=== PATIENT | female | born 1990 | race African-American/Black ===

== ENCOUNTER 2019-10-22 15:08 | Emergency (ER) | payer OTHER ==
[2019-10-22 15:24] VITALS: BP 105/72; PULSE 79; TEMP 98.3; BMI 29.2
[2019-10-22] MEDS ORDERED: KETOROLAC TROMETHAMINE 60 MG/2 ML VIAL IM ONE (16:03)
[2019-10-22] MEDS ORDERED: KETOROLAC TROMETHAMINE 60 MG/2 ML VIAL ONE (16:06)
--- NOTE | 2019-10-22 16:43 | PDOC ---
History of Present Illness - General Chief Complaint: Injury Stated Complaint: LF WRIST INJURY Time Seen by Provider: 10/22/19 15:37 History Source: Patient Exam Limitations: Clinical Condition - History of Present Illness Initial Comments: 10/22/19 16:49 Patient with no significant past medical history presented with complaint of worsening pain to back of left hand on the ulnar aspect status post slip yesterday and grabbing herself with her left hand while getting off a box yesterday. Patient reports pain started as mild pain yesterday which is worsened today which is worse with movement of left hand and wrist. Patient did not take anything for pain. Denies numbness or tingling sensation or restricted hand or wrist movement. Denies any other symptoms Occurred: reports: yesterday Severity: reports: moderate Pain Location: reports: upper extremity (left hand) Method of Injury: Yes: fall Modifying Factors: improves with: rest Associated Symptoms (Fall): denies symptoms Past History - Past Medical History Allergies/Adverse Reactions: Allergies Allergy/AdvReac Type Severity Reaction Status Date / Time shrimp Allergy Verified 10/22/19 15:21 tomato Allergy Verified 10/22/19 15:20 Home Medications: Ambulatory Orders Ibuprofen 800 mg PO Q8H PRN #20 tablet 10/22/19 COPD: No - Psycho Social/Smoking Cessation Hx Smoking History: Current every day smoker Information on smoking cessation initiated: No Review of Systems - Review of Systems Able to Perform ROS?: Yes Is the patient limited Croatian proficient: No Constitutional: No: Malaise, Weakness Respiratory: No: Symptoms reported Cardiac (ROS): No: Symptoms Reported ABD/GI: No: Symptoms Reported Musculoskeletal: Yes: Symptoms Reported, See HPI, Joint Pain (left wrist pain), Joint Swelling (left hand), Muscle Pain (left hand pain) Integumentary: Yes: Symptoms Reported, See HPI, Other (swelling to left back of hand) Neurological: No: Symptoms reported, Numbness, Paresthesia, Weakness All Other Systems: Reviewed and Negative *Physical Exam - Vital Signs Last Vital Signs Temp Pulse Resp BP Pulse Ox 98.3 F 79 18 105/72 100 10/22/19 15:18 10/22/19 15:18 10/22/19 15:18 10/22/19 15:18 10/22/19 15:18 - Physical Exam Comments: 10/22/19 16:47 GENERAL: Well developed, well nourished. Awake and alert in moderate acute distress. PULMONARY: No evidence of respiratory distress. MUSCULOSKELETAL : Moderate tenderness along dorsal aspect of ulna part of left hand with increased tenderness over the fifth metacarpals. Mild swelling over the ulnar aspect of dorsal aspect of left hand. No bony deformities SKIN: Warm and dry. Normal capillary refill. No bruising or ecchymosis. NEUROLOGICAL: Alert, awake, appropriate. No motor deficits in the lower extremities. Gait is normal without ataxia. PSYCHIATRIC: Cooperative. Good eye contact. Appropriate mood and affect. General Appearance: Yes: Nourished, Appropriately Dressed, Apparent Distress, Mild Distress Procedures - Splinting Splint Location: Left: Hand, Wrist Pre-Proc Neuro Vasc Exam: normal Pre-Made Type: metal Hand-Made Type: fiberglass Splint Type: Yes: Wrist Post-Proc Neuro Vasc Exam: normal Riley Bandage: yes, 3" Sling: Yes Complications: No Post splint xray: No Good repositioning: Yes ED Treatment Course - RADIOLOGY Radiology Studies Ordered: Category Date Time Status WRIST W/HAND-LEFT* [RAD] Stat Radiology 10/22/19 15:37 Taken Medical Decision Making - Medical Decision Making 10/22/19 16:50 Patient with no significant past medical history presented with complaint of 24- hour history of injury of left hand with moderate pain to ulnar aspect of back of left hand which is worse with movement. Exam significant for moderate tenderness over the ulnar aspect of left hand overlying fourth and fifth metacarpals with no visible deformity. Mild swelling over the dorsal aspect of left hand over on the side. X-ray of left hand and wrist shows no acute fracture or dislocation. Patient symptoms likely wrist and hand sprain. Left hand wrapped with Riley bandage and patient placed with prefabricated wrist and hand splint given patient with complains of severe hand pain. Patient given sling for support. Toradol 60 mg IM given for pain. Patient stable for discharge with orthopedics follow-up Discharge - Discharge Information Problems reviewed: Yes Clinical Impression/Diagnosis: Left wrist pain Sprain of left hand Qualifiers: Encounter type: initial encounter Qualified Code(s): S63.92XA - Sprain of unspecified part of left wrist and hand, initial encounter Condition: Stable Disposition: HOME - Admission No - Additional Discharge Information Prescriptions: Ibuprofen 800 mg PO Q8H PRN #20 tablet PRN Reason: pain - Follow up/Referral Referrals: Zaki Duarte MD [Staff Physician] - - Patient Discharge Instructions Patient Printed Discharge Instructions: DI for Wrist Sprain Additional Instructions: X-ray of left wrist and hand shows no acute fracture or dislocation. Keep provided wrist splint on until orthopedics follow-up. Take prescribed medication as needed for pain. Apply hot compress to hand and wrist 2-3 times a day as needed for swelling. Follow-up referred orthopedics as soon as possible - Post Discharge Activity
== END 2019-10-22 16:46 | disposition home or self-care (01) ==
LOC: JERFT 15:08
PROC: 2W3DX1Z Immobilization of Left Lower Arm using Splint (ICD-10-PCS; principal; 2019-10-22)
PROC: 3E0233Z Introduction of Anti-inflammatory into Muscle, Percutaneous Approach (ICD-10-PCS; 2019-10-22)
DX: S63.8X2A Sprain of other part of left wrist and hand, initial encounter (principal); W17.89XA Other fall from one level to another, initial encounter; Y93.89 Activity, other specified; Y92.89 Other specified places as the place of occurrence of the external cause; Y99.8 Other external cause status; Z91.013 Allergy to seafood; Z91.018 Allergy to other foods; F17.210 Nicotine dependence, cigarettes, uncomplicated
CPT/HCPCS: 73110-TC-LT-FY; 73130-TC-LT-FY; 99282-25

== ENCOUNTER 2019-10-30 09:20 | Emergency (ER) | payer OTHER ==
[2019-10-30 09:24] VITALS: BP 106/70; PULSE 99; TEMP 102.8; BMI 28.3
[2019-10-30] MEDS ORDERED: KETOROLAC TROMETHAMINE 60 MG/2 ML VIAL IM ONE (09:43)
[2019-10-30] MEDS ORDERED: DEXAMETHASONE 4 MG TABLET (FP) PO ONE (09:45)
[2019-10-30] MEDS ORDERED: DEXAMETHASONE SOD PHOSPHATE 10 MG/1 ML VIAL ONE (09:49)
[2019-10-30] MEDS ORDERED: KETOROLAC TROMETHAMINE 60 MG/2 ML VIAL ONE (09:49)
--- NOTE | 2019-10-30 10:00 | PDOC ---
History of Present Illness - General Chief Complaint: Sore Throat Stated Complaint: SORE THROAT Time Seen by Provider: 10/30/19 09:33 History Source: Patient Exam Limitations: No Limitations - History of Present Illness Is this a multiple visit Asthma Patient?: No Associated Symptoms: reports: fever/chills. denies: cough, headaches, loss of appetite, nausea/vomiting, shortness of breath Past History - Travel Traveled outside of the country in the last 30 days: No Close contact w/someone who was outside of country & ill: No - Past Medical History Allergies/Adverse Reactions: Allergies Allergy/AdvReac Type Severity Reaction Status Date / Time shrimp Allergy Verified 10/30/19 09:23 tomato Allergy Verified 10/30/19 09:23 Home Medications: Ambulatory Orders Ibuprofen 800 mg PO Q8H PRN #20 tablet 10/22/19 Amoxicillin - [Amoxicillin 500mg Capsule -] 500 mg PO BID 10 Days #20 capsule Ibuprofen 800 mg PO ACDIN 7 Days #20 tablet 10/30/19 COPD: No - Psycho Social/Smoking Cessation Hx Smoking History: Never smoked Review of Systems - Review of Systems Constitutional: Yes: Fever. No: Chills HEENTM: Yes: Throat Pain, Throat Swelling. No: Ear Discharge, Nose Pain, Nose Congestion Respiratory: No: Cough, Shortness of Breath Cardiac (ROS): No: Chest Pain Neurological: No: Headache, Numbness *Physical Exam - Vital Signs Last Vital Signs Temp Pulse Resp BP Pulse Ox 102.8 F H 99 H 18 106/70 99 10/30/19 09:21 10/30/19 09:21 10/30/19 09:21 10/30/19 09:21 10/30/19 09:21 - Physical Exam General Appearance: Yes: Nourished HEENT: positive: EOMI, ZHEN, TMs Normal, Pharyngeal Erythema, Tonsillar Exudate , Tonsillar Erythema. negative: Nasal Congestion, Rhinorrhea, Sinus Tenderness Neck: positive: Lymphadenopathy (R), Lymphadenopathy (L) Respiratory/Chest: positive: Lungs Clear, Normal Breath Sounds Cardiovascular: positive: Regular Rhythm, Regular Rate, S1, S2 Gastrointestinal/Abdominal: positive: Normal Bowel Sounds Neurologic: positive: motor setter II-XII NML intact, Fully Oriented, Alert, Normal Mood/ Affect, Normal Response, Motor Strength 5/5 ED Treatment Course - Medications Given in the ED: ED Medications Discontinued Medications Generic Name Dose Route Start Last Admin Trade Name Stacia PRAmy Reason Stop Dose Admin Dexamethasone 10 mg 10/30/19 09:45 10/30/19 09:56 Decadron - PO 10/30/19 09:46 10 mg ONCE ONE Administration Ketorolac Tromethamine 60 mg 10/30/19 09:43 10/30/19 09:55 Toradol Injection - IM 10/30/19 09:44 60 mg ONCE ONE Administration Medical Decision Making - Medical Decision Making 10/30/19 09:59 29 years old female with sore throat and fever for 3 days. Patient denies cough drooling, she has a history of strep in the past and it feels like her previous infection. Exam consist of erythematous oropharynx with exudates, positive cervical lymphadenopathy. Patient is febrile Dexamethasone and Toradol given 10/30/19 11:47 Rapid strep positive Patient reassessed after dexamethasone Toradol she felt better Repeat vitals fever 100, heart rate 96 Discharge - Discharge Information Problems reviewed: Yes Clinical Impression/Diagnosis: Strep pharyngitis Condition: Stable Disposition: HOME - Admission No - Additional Discharge Information Prescriptions: Amoxicillin - [Amoxicillin 500mg Capsule -] 500 mg PO BID 10 Days #20 capsule Ibuprofen 800 mg PO ACDIN 7 Days #20 tablet Prescription Drug Monitoring Program (I-STOP) results: I-STOP not reviewed - Follow up/Referral - Patient Discharge Instructions Patient Printed Discharge Instructions: DI for Strep Throat Additional Instructions: Your strep was positive today. Please take antibiotics as prescribed. Gargle with salt warm water. Do not share utensils with other as this is contagious. Change toothbrush in 3 days. Return to the emergency room if worsening pain, drooling, worsening fever occurs otherwise follow-up with primary care doctor - Post Discharge Activity Work/Back to School Note: Back to Work
== END 2019-10-30 10:45 | disposition home or self-care (01) ==
LOC: JERFT 09:20
PROC: 3E0233Z Introduction of Anti-inflammatory into Muscle, Percutaneous Approach (ICD-10-PCS; principal; 2019-10-30)
DX: J02.0 Streptococcal pharyngitis (principal); Z91.013 Allergy to seafood; Z91.018 Allergy to other foods
CPT/HCPCS: 87880; 96372; 99281-25

== ENCOUNTER 2020-08-03 13:53 | Emergency (ER) | payer OTHER ==
[2020-08-03 13:58] VITALS: BP 122/71; PULSE 99; TEMP 100.6; BMI 28.3
[2020-08-03] MEDS ORDERED: DEXAMETHASONE SOD PHOSPHATE 10 MG/1 ML VIAL IM ONE (14:10)
[2020-08-03] MEDS ORDERED: IBUPROFEN 600 MG TABLET (FP) PO ONE ×2 (14:11)
[2020-08-03] MEDS ORDERED: ACETAMINOPHEN 325 MG TABLET (FP) ONE (14:11)
[2020-08-03] MEDS ORDERED: ACETAMINOPHEN 325 MG TABLET (FP) PO ONE (14:11)
[2020-08-03] MEDS ORDERED: DEXAMETHASONE SOD PHOSPHATE 10 MG/1 ML VIAL ONE (14:11)
--- NOTE | 2020-08-03 14:13 | PDOC ---
History of Present Illness - General Chief Complaint: Sore Throat Stated Complaint: STREP THROAT (STERPTOCOCCAL) Time Seen by Provider: 08/03/20 14:08 History Source: Patient Exam Limitations: No Limitations - History of Present Illness Initial Comments: 08/03/20 14:19 29 year old female no pmhx presenting to the ED complaining of 1 day of sore throat and subjective fever. Pt states that she is prone to strep throat. Pt denies drooling or difficultly swallowing and is able to tolerate PO. Pt otherwise denies: chills, syncope, lightheadedness, dizziness, headaches, neck pain, chest pain, shortness of breath, palpitations, back pain, abdominal pain, nausea, vomiting, diarrhea, constipation. Past History - Medical History Allergies/Adverse Reactions: Allergies Allergy/AdvReac Type Severity Reaction Status Date / Time shrimp Allergy Verified 08/03/20 13:55 tomato Allergy Verified 08/03/20 13:55 Home Medications: Ambulatory Orders Ibuprofen 800 mg PO Q8H PRN #20 tablet 10/22/19 Amoxicillin - [Amoxicillin 500mg Capsule -] 500 mg PO BID 10 Days #20 capsule 10/30/19 Ibuprofen 800 mg PO ACDIN 7 Days #20 tablet 10/30/19 Amoxicillin - [Amoxicillin 500mg Capsule -] 500 mg PO BID 10 Days #20 capsule 08/03/20 Ibuprofen [Ibu] 600 mg PO TID #30 tablet 08/03/20 COPD: No - Reproductive History Is Patient Now?: No - Immunization History Immunization Up to Date: Yes - Psycho-Social/Smoking History Smoking History: Never smoked - Substance Abuse Hx (Audit-C & DAST Scrn) How often the patient has a drink containing alcohol: Never Score: In Men: 4 or > Positive; In Women: 3 or > Positive: 0 Screen Result (Pos requires Nsg. Audit-10AR): Negative In the last yr the pt used illegal drug/Rx for NonMed reason: Yes Score: Yes response is considered Positive: 1 Screen Result (Positive result requires Nsg. DAST-10): Positive *Physical Exam - Vital Signs Last Vital Signs Temp Pulse Resp BP Pulse Ox 100.6 F H 99 H 18 122/71 100 08/03/20 13:56 08/03/20 13:56 08/03/20 13:56 08/03/20 13:56 08/03/20 13:56 - Physical Exam 08/03/20 14:20 Gen: AAOx 3, no acute distress, comfortable, no signs of respiratory distress HENT: atraumatic, normocephalic with no laceration or contusion. Nasal mucosa without erythema. Oropharynx with erythema nonkissing tonsillar edema with L sided exudates. Mucous membranes moist. EYES: PERRL, EOM intact, conjunctiva pink NECK: supple; trachea midline; no JVD, no lymphadenopathy, or thyromegaly CV: RRR no murmurs, gallops, or rubs. CHEST: CTA b/l no wheezing, rales or rhonchi ABD: +BS/ND. no TTP; soft, no rebound, no guarding EXTREMITY: no cyanosis or erythema. 2+ dorsalis pedis, posterior tibial, and radial pulse. No pedal edema; no calf swelling or tenderness SKIN: no rash, warm and dry, no diaphoresis HEME: no purpura or ecchymosis NEURO: normal speech, CN II-XII intact, sensation intact, normal gait, no cerebellar deficits MS: 5/5 strength in all extremities, FROM intact in all extremities. Medical Decision Making - Medical Decision Making 08/03/20 14:21 29 year old female w sore throat Febrile to 100.6 and midly tahcycardic to 100 Highly suspicious for Strep will treat regardless Will give dexamethasone, IBU and Tylenol Will swab for strep and covid Pt reports improvement in pain with meds, now afebrile and nonachycardic Amoxicilling and IBU sent to pts pharmacy Pt instructed to finish full course of ABX Pt appears well and is safe and stable for discharge with strict return precautions including signs and symptoms requring immediate return to the ED Supportive care instructions explained and given to pt. Reasons to return emergently to ER explained and given. Importance of follow up with PMD and other specialists as indicated stressed to pt. Pt verbalized understanding of instructions. Pt to follow up with PMD in 2 days. Discharge - Discharge Information Problems reviewed: Yes Clinical Impression/Diagnosis: Strep pharyngitis Condition: Stable Disposition: HOME - Additional Discharge Information Prescriptions: Amoxicillin - [Amoxicillin 500mg Capsule -] 500 mg PO BID 10 Days #20 capsule Ibuprofen [Ibu] 600 mg PO TID #30 tablet - Follow up/Referral - Patient Discharge Instructions Patient Printed Discharge Instructions: DI for Strep Throat - Post Discharge Activity Work/Back to School Note: Back to Work
== END 2020-08-03 14:31 | disposition home or self-care (01) ==
LOC: JERFT 13:53
PROC: 3E023GC Introduction of Other Therapeutic Substance into Muscle, Percutaneous Approach (ICD-10-PCS; principal; 2020-08-03)
DX: J02.0 Streptococcal pharyngitis (principal)
CPT/HCPCS: 87070; 87077; 87880; 99284-25; J1100; U0003

== ENCOUNTER 2023-02-14 23:23 | Emergency (ER) | payer OTHER ==
[2023-02-14 23:41] VITALS: RESP 20; TEMP 98.6; BMI 30.2
[2023-02-15] MEDS ORDERED: SODIUM CHLORIDE 0.9% 500 ML INFUS.BAG IV ONE (00:58)
[2023-02-15] MEDS ORDERED: ACETAMINOPHEN 1000 MG/100 ML BAG IVPB ONE (00:58)
[2023-02-15] MEDS ORDERED: LIDOCAINE 5% TOPICAL PATCH TP ONE (01:04)
[2023-02-15] MEDS ORDERED: LIDOCAINE 5% TOPICAL PATCH ONE (01:21)
[2023-02-15] MEDS ORDERED: ACETAMINOPHEN INJECTION 100 ML IVPB ONE (01:21)
[2023-02-15 01:53] LABS: BASO % 0.7 % (0-2.0); EOS % 1.3 % (0-4.5); HEMATOCRIT 37.2 % (32.4-45.2); HEMOGLOBIN 12.2 GM/dL (10.7-15.3); LYMPH % 28.3 % (8-40); MCH 24.5 pg (25.7-33.7); MCHC 32.8 g/dl (32.0-36.0); MEAN CELL VOLUME 74.7 fl (80-96); MEAN PLT VOLUME 7.6 fl (7.5-11.1); MONO % 8.1 % (3.8-10.2); NEUT % 61.6 % (42.8-82.8); PLATELET COUNT 501 10^3/uL (134-434); RBC 4.97 M/mm3 (3.60-5.2); RDW 13.5 % (11.6-15.6); WHITE BLOOD COUNT 6.9 K/mm3 (4.0-10.0)
[2023-02-15 01:55] LABS: URINE APPEARANCE CLEAR; URINE BILIRUBIN NEGATIVE (NEGATIVE); URINE COLOR YELLOW; URINE GLUCOSE (UA) NEGATIVE (NEGATIVE); URINE KETONE TRACE (NEGATIVE); URINE LEUK ESTERASE NEGATIVE (NEGATIVE); URINE NITRITE NEGATIVE (NEGATIVE); URINE PROTEIN TRACE (NEGATIVE)
[2023-02-15 02:09] LABS: ALBUMIN 3.3 g/dl (3.4-5.0); BLOOD UREA NITROGEN 13.5 mg/dL (7-18); CALCIUM 8.3 mg/dL (8.5-10.1); MAGNESIUM 1.9 mg/dL (1.8-2.4)
[2023-02-15 02:12] LABS: CREATININE 1.1 mg/dL (0.55-1.3)
[2023-02-15 02:14] LABS: BILIRUBIN,TOTAL 0.2 mg/dL (0.2-1); TOT PROT 6.8 g/dl (6.4-8.2)
[2023-02-15] MEDS ORDERED: KETOROLAC TROMETHAMINE 15 MG/ML VIAL IVPUSH ONE (03:06)
[2023-02-15 03:24] VITALS: BP 103/62; PULSE 73
[2023-02-15] MEDS ORDERED: KETOROLAC TROMETHAMINE 15 MG/ML VIAL ONE (03:41)
[2023-02-15] MEDS ORDERED: LIDOCAINE PATCH REMOVAL MC SCH (22:00)
== END 2023-02-15 06:15 | disposition home or self-care (01) ==
LOC: JER 23:23
PROC: 3E033NZ Introduction of Analgesics, Hypnotics, Sedatives into Peripheral Vein, Percutaneous Approach (ICD-10-PCS; principal; 2023-02-14)
PROC: 3E0333Z Introduction of Anti-inflammatory into Peripheral Vein, Percutaneous Approach (ICD-10-PCS; 2023-02-14)
DX: R07.9 Chest pain, unspecified (principal)
CPT/HCPCS: 36415; 71046-TC-FY; 71275-TC; 80053; 81003; 83735; 84484; 84703; 85025; 85379; 93005; 93010; 99285-25; Q9967

== ENCOUNTER 2024-02-28 06:50 | Emergency (ER) | payer OTHER ==
[2024-02-28 07:11] VITALS: BP 116/70; PULSE 94; RESP 18; TEMP 98; BMI 30.2
[2024-02-28] MEDS ORDERED: IBUPROFEN 600 MG TABLET (FP) PO ONE (08:00)
[2024-02-28] MEDS: IBUPROFEN 600 MG TABLET (FP) PO ONE (08:01)
== END 2024-02-28 08:57 | disposition home or self-care (01) ==
LOC: JER 06:50
DX: S83.91XA Sprain of unspecified site of right knee, initial encounter (principal); M25.561 Pain in right knee; X50.1XXA Overexertion from prolonged static or awkward postures, initial encounter
CPT/HCPCS: 73562-TC-RT-FY; 99283-25

== ENCOUNTER 2024-03-18 07:07 | Emergency (ER) | payer OTHER ==
[2024-03-18 07:17] VITALS: BP 106/78; PULSE 86; RESP 18; TEMP 99.1; BMI 31.1
[2024-03-18] MEDS ORDERED: IBUPROFEN 600 MG TABLET (FP) PO ONE (07:50)
[2024-03-18] MEDS ORDERED: AMOX TR/POT CLAV 875MG/125MG TABLETS (FP) ONE (07:50)
[2024-03-18] MEDS: IBUPROFEN 600 MG TABLET (FP) PO ONE (07:52)
[2024-03-18] MEDS: AMOX TR/POT CLAV 875MG/125MG TABLETS (FP) PO ONE (07:52)
== END 2024-03-18 08:29 | disposition home or self-care (01) ==
LOC: JERFT 07:07 → JER 07:07 → JERFT 08:29
DX: J02.0 Streptococcal pharyngitis (principal); R51.9 Headache, unspecified; R11.0 Nausea; Z20.822 Contact with and (suspected) exposure to COVID-19
CPT/HCPCS: 0241U-QW; 87651; 99283-25